=== PATIENT | female | born 1955 | race Caucasian/White ===

== ENCOUNTER 2023-11-07 06:16 | Day surgery (SDC) | payer BC, SELFPAY ==
[2023-11-07] MEDS: Lactated Ringers 1,000 ML IV SCH (06:27)
[2023-11-07] MEDS ORDERED: propofoL 50 ML ONE (07:51)
[2023-11-07] MEDS ORDERED: dexmedeTOMIDine HCl 200 MCG/2 ML SDV ONE (07:54)
[2023-11-07] MEDS ORDERED: Lactated Ringers 1,000 ML IV SCH (08:45)
[2023-11-07 09:51] VITALS: BP 135/81; PULSE 70
== END 2023-11-07 09:09 | disposition home or self-care (01) ==
LOC: MW.SDS 06:16
PROVIDERS: ATTEND Surgery
DX: R19.4 Change in bowel habit (principal); Z80.0 Family history of malignant neoplasm of digestive organs; I10 Essential (primary) hypertension; F17.210 Nicotine dependence, cigarettes, uncomplicated; Z79.899 Other long term (current) drug therapy
CPT/HCPCS: 45378; J2704; J7120; J3490